=== PATIENT | female | born 1945 | race Caucasian/White ===

== ENCOUNTER 2017-11-28 23:01 | Emergency (ER) | payer OTHER, MEDICARE, BC ==
[2017-11-28] MEDS ORDERED: NAPROXEN 250 MG TABLET PO ONE (23:42)
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
== END 2017-11-29 00:44 | disposition home or self-care (01) ==
LOC: ER 23:01
DX: S16.1XXA Strain of muscle, fascia and tendon at neck level, initial encounter (principal); V49.49XA Driver injured in collision with other motor vehicles in traffic accident, initial encounter
CPT/HCPCS: 72125; 99283